=== PATIENT | male | born 1945 | race Hispanic/Latino ===

== ENCOUNTER → 2019-01-13 | Outpatient (CLI) | payer OTHER, MEDICARE | END | disposition home or self-care (01) | LOC: OIH 13:02 | PROVIDERS: ATTEND Internal Medicine | DX: M48.07 Spinal stenosis, lumbosacral region (principal); M47.26 Other spondylosis with radiculopathy, lumbar region; M47.818 Spondylosis without myelopathy or radiculopathy, sacral and sacrococcygeal region; I11.9 Hypertensive heart disease without heart failure | CPT/HCPCS: 71046; 72100 ==

== ENCOUNTER → 2019-03-03 | Outpatient (CLI) | payer OTHER, MEDICARE | END | disposition home or self-care (01) | LOC: RAH 14:26 | PROVIDERS: ATTEND Internal Medicine | DX: R91.8 Other nonspecific abnormal finding of lung field (principal); C18.9 Malignant neoplasm of colon, unspecified | CPT/HCPCS: 71250 ==